=== PATIENT | female | born 1960 | race Caucasian/White ===

== ENCOUNTER → 2020-11-20 10:50 | Outpatient (CLI) | payer OTHER, SELFPAY ==
--- NOTE | ~2020-11-20 | DEXA_ITS ---
Bone Density Report Name: Neha Ibanez Age: 60 Sex: Female Ethnicity: White Date of : 1960 Indication: postmenopausal; screening for osteoporosis; history of glucocorticoids; prior fracture; hysterectomy; Referring Provider: Marcellus, Brianda Ham Study: Bone densitometry was performed. Exam Date: November 20, 2020 Accession number: [id number] Bone Density: Region BMD T-score Z-score Classification AP Spine (L1-L4) 1.129 0.7 2.1 Normal Femoral Neck (Left) 0.635 -1.9 -0.7 Osteopenia Total Hip (Left) 0.784 -1.3 -0.4 Osteopenia Femoral Neck (Right) 0.635 -1.9 -0.7 Osteopenia Total Hip (Right) 0.792 -1.2 -0.3 Osteopenia Total Hip Mean 0.788 -1.3 -0.4 Osteopenia World Health Organization criteria for BMD impression classify patients as: Normal (T-score at or above -1.0), Osteopenia (T-score between -1.0 and -2.5), or Osteoporosis (T-score at or below -2.5). 10-year Fracture Risk(1): Major Osteoporotic Fracture 24% Hip Fracture 3.6% Reported Risk Factors: [place] (), Neck BMD=0.635, BMI=27.9, previous fracture, glucocorticoids (1) FRAX(R) Version 3.08. Fracture probability calculated for an untreated patient. Fracture probability may be lower if the patient has received treatment. Previous Exams: Region Exam Age BMD T-score BMD Change BMD Change Date g/cm2 vs Baseline vs Previous AP Spine(L1-L4) 11/20/2020 60 1.129 0.7 0.043* 0.043* 07/30/2015 55 1.086 0.4 Total Hip(Left) 11/20/2020 60 0.784 -1.3 -0.064* -0.064* 07/30/2015 55 0.848 -0.8 Total Hip(Right) 11/20/2020 60 0.792 -1.2 -0.074* -0.074* 07/30/2015 55 0.866 -0.6 *Denotes significance at 95% confidence level, LSC for AP Spine = 0.022 g/cm2, LSC for Total Hip = 0.027 g/cm2 Clinical Information Provided by Patient: Has had a low trauma fracture Has taken Glucocorticoids Has used the following medications: Vitamin D, Calcium Has the following medical conditions: Hysterectomy Patient maximum height was 68.5 Menopause Age: 45 No regular weight bearing exercise Drinks caffeinated beverages Onset of menses at age 15 Number of children 0 Impression: The patient has low bone mass, based on the Left Femoral Neck T-score. The patient has an estimated ten-year risk of hip fracture of 3.6% and an estimated ten-year risk of major fracture of 24%, based on the WHO FRAX algorithm. The patient has risk factors, includi
== END ==
PROVIDERS: PCP Family Medicine; Visit Provider Family Medicine
DX: Z78.0 Asymptomatic menopausal state (principal); M85.852 Other specified disorders of bone density and structure, left thigh; M85.851 Other specified disorders of bone density and structure, right thigh
CPT/HCPCS: 77080

== ENCOUNTER 2022-02-19 09:59 | Outpatient (CLI) | payer OTHER, SELFPAY ==
--- NOTE | 2022-02-19 11:00 | NEURO_ITS ---
Impression: # Complains of left arm pain and numbness. # Mild bilateral Carpal Tunnel Syndrome, left worse than right. # Normal needle/EMG exam. # Clinical correlation recommended. Motor Nerve Conduction Upper Extremities Median Nerve Conduction Velocity (m/sec) Terminal Latency (msec) Response Voltage(mV) Elbow-Wrist Wrist Elbow Wrist Right 56 3.4 4 5 Left 59 3.4 5 6 Ulnar Nerve Conduction Velocity (m/sec) Terminal Latency (msec) Response Voltage(mV) Above Elbow Below Elbow Wrist Above Elbow Below Elbow Wrist Right 62 62 2.8 7 7 8 Left 61 61 2.8 6 7 6 F-Wave Latency Median (ms) Ulnar (ms) Right 29.4 28.8 Left 29.5 29.1 Sensory Nerve Conduction Upper Extremities Median Nerve Stimulation Terminal Latency (msec) Wrist/Digit Response Voltage (uV) Wrist Right 3.7/4.0 29/44 Left 4.0/4.0 33/55 Ulnar Nerve Stimulation Terminal Latency (msec) Wrist/Digit Response Voltage (uV) Wrist Right 2.9 48 Left 3.0 56 Radial Nerve Terminal Latency (msec) Response Voltage(mV) Right 2.3 39 Left 2.8 34 Left Right Muscles Examined Fibrillation Fasciculation Scarcity Voltage Duration Left Right Left Right Left Right Left Right Left Right x Deltoid x Biceps x x Brachioradialis x Triceps x x Pronator Teres x x Ext Indicis x x Ext Digitorum x x Abd Poll Brev x x 1st Dorsal Interosseus Paraspinals MTDD
== END 2022-02-19 10:00 | disposition home or self-care (01) ==
PROVIDERS: PCP Family Medicine; Visit Provider Orthopaedic Surgery
DX: G56.03 Carpal tunnel syndrome, bilateral upper limbs (principal)
CPT/HCPCS: 95886; 95911